=== PATIENT | male | born 1985 | race Caucasian/White ===

== ENCOUNTER 2022-01-10 12:26 | Emergency (ER) | payer OTHER ==
[2022-01-10 13:57] LABS: HCT 44.7 % (42.0-52.0); HGB 14.9 g/dl (13.2-18.0); LYMPHOCYTE 28.4 % (15-48); MCH 30.2 pg (25.0-31.0); MCHC 33.3 g/dL (32.0-36.0); MCV 90.5 fL (78.0-100.0); MONOCYTE 7.9 % (0-12); MPV 9.9 fL (6.0-9.5); NEUTROPHIL 58.2 % (41-80); NRBC 0; PLT 311 K/uL (150-400); RBC 4.94 M/uL (4.70-6.00); RDW 13.3 % (11.5-14.0); WBC 7.7 K/uL (4.0-10.5)
[2022-01-10 14:29] LABS: ALBUMIN 4.2 g/dL (3.4-5.0); BILIRUBIN - TOTAL 0.3 mg/dL (0.2-1.0); CREATININE 0.92 mg/dL (0.67-1.17); GLOBULIN (CALCULATION) 3.3 g/dL; POTASSIUM 4.1 mmol/L (3.5-5.1); TOTAL PROTEIN 7.5 g/dL (6.4-8.2)
[2022-01-10] MEDS ORDERED: MOTRIN600 MG PO (15:44)
== END 2022-01-10 14:04 | disposition home or self-care (01) ==
LOC: FER 12:26
PROVIDERS: Physician Assistant
DX: R07.9 Chest pain, unspecified (principal); F17.210 Nicotine dependence, cigarettes, uncomplicated; Z28.310 Unvaccinated for COVID-19
CPT/HCPCS: 36415; 71045; 80053; 84484; 85025; 93005